=== PATIENT | male | born 1950 | race Caucasian/White ===

== ENCOUNTER 2016-12-23 06:08 | Day surgery (SDC) | payer OTHER ==
[~2016-12-23] VITALS: Ht 182.9 cm; Wt 108.0 kg
[~2016-12-23 06:08] MED LIST: ALBENZA200 MG PO; BENICAR HCT1 TAB PO; BENICAR20 MG PO; CELEBREX200 MG PO; CIPROFLOXACN500 MG PO; FLAGYL500 MG PO; FLEXERIL PO; FLUZONE SPLT1 M1 IM; LORTAB5 PO; METOPROLOL TAR100 MG PO; METOPROLOL50 MG PO; NAPROSYN500 MG PO; SYNTHROID100 MCG PO; ZPAK OR
[2016-12-23 09:20] VITALS: BP 130/63
== END 2016-12-23 09:00 | disposition home or self-care (01) | DRG 951 ==
LOC: ENDO 06:08
PROVIDERS: ATTEND Surgery
PROC: 0DJD8ZZ Inspection of Lower Intestinal Tract, Via Natural or Artificial Opening Endoscopic (ICD-10-PCS; principal; 2016-12-23)
DX: Z12.11 Encounter for screening for malignant neoplasm of colon (principal); K64.8 Other hemorrhoids; K57.30 Diverticulosis of large intestine without perforation or abscess without bleeding; E03.9 Hypothyroidism, unspecified; I10 Essential (primary) hypertension

== ENCOUNTER 2018-04-14 13:49 | Inpatient (IN) | payer MEDICARE ==
[~2018-04-14] VITALS: Ht 182.9 cm; Wt 111.3 kg
[2018-04-18] VITALS (9 sets, daily range): BP systolic 107–130; BP diastolic 49–73
[2018-04-19] VITALS (7 sets, daily range): BP systolic 101–140; BP diastolic 53–81
[2018-04-19 05:12] LABS: HEMATOCRIT 40.1 % (39.0-50.0)
[2018-04-20 04:57] VITALS: BP 146/85
[2018-04-20 05:56] LABS: HEMATOCRIT 39.6 % (39.0-50.0); HEMOGLOBIN 13.1 g/dl (14.0-18.0); IMMATURE GRANULOCYTES 0.3 % (0.0-5.0); MEAN CELL VOLUME 82.8 fL CALC (80.0-100.0); MEAN CORPUSCULAR HGB 27.4 pG CALC (26.0-32.0); MEAN CORPUSCULAR HGB CONC 33.1 g/L CALC (32.0-36.0); NEUT# 7.39 thou/uL (1.82-7.42); RED BLOOD COUNT 4.78 mill/uL (4.70-6.10); RED CELL DISTRI WIDTH 13.3 % (11.5-15.5)
[2018-04-20 06:12] LABS: ALKALINE PHOSPHATASE 60 u/l (38-126); AMYLASE 265 u/l (30-110); ANION GAP 14 (6-22 (CALC)); BILIRUBIN, TOTAL 1.1 mg/dL (0.0-1.4); BUN 20 mg/dL (8-23); BUN/CREATININE RATIO 21 (12-20 (CALC)); CARBON DIOXIDE 29 mmol/l (22-30); CHLORIDE 102 mmol/l (95-108); GFR > 60 ML/MIN (>=60 (CALC)); GFR FOR AFR.AMER. > 60 ML/MIN (>=60 (CALC)); LIPASE 43 u/l (23-300); MAGNESIUM 2.4 mg/dL (1.6-2.3); POTASSIUM 3.7 mmol/l (3.5-5.1); SGOT/AST 20 u/l (19-48); SODIUM 141 mmol/l (137-146); TOTAL PROTEIN 6.3 g/dL (6.3-8.2)
[2018-04-20 09:22] VITALS: BP 139/76
[2018-04-20] MEDS ORDERED: TRAMADOL HCL50 MG PO ×2 (15:06→15:08)
[2018-04-20 16:00] VITALS: BP 155/78
[2018-04-20 16:54] LABS: HEMATOCRIT 38.2 % (39.0-50.0); HEMOGLOBIN 12.7 g/dl (14.0-18.0); IMMATURE GRANULOCYTES 0.3 % (0.0-5.0); MEAN CELL VOLUME 82.2 fL CALC (80.0-100.0); MEAN CORPUSCULAR HGB 27.3 pG CALC (26.0-32.0); MEAN CORPUSCULAR HGB CONC 33.2 g/L CALC (32.0-36.0); NEUT# 7.01 thou/uL (1.82-7.42); RED BLOOD COUNT 4.65 mill/uL (4.70-6.10); RED CELL DISTRI WIDTH 13.2 % (11.5-15.5)
[2018-04-20 17:10] LABS: ANION GAP 11 (6-22 (CALC)); BUN 15 mg/dL (8-23); BUN/CREATININE RATIO 18 (12-20 (CALC)); CARBON DIOXIDE 30 mmol/l (22-30); CHLORIDE 102 mmol/l (95-108); CREATININE 0.9 mg/dL (0.7-1.3); GFR > 60 ML/MIN (>=60 (CALC)); GFR FOR AFR.AMER. > 60 ML/MIN (>=60 (CALC)); POTASSIUM 3.5 mmol/l (3.5-5.1); SODIUM 139 mmol/l (137-146)
[2018-04-20 19:05] VITALS: BP 113/71
[2018-04-20 19:08] LABS: URINE BILIRUBIN - DIPSTICK NEGATIVE (NEGATIVE); URINE BLOOD DIPSTICK MODERATE (NEGATIVE); URINE COLOR YELLOW; URINE GLUCOSE - DIPSTICK NEGATIVE (NEGATIVE); URINE KETONE NEGATIVE (NEGATIVE); URINE LEUK ESTERASE NEGATIVE (Negative); URINE NITRITE - DIPSTICK NEGATIVE (Negative); URINE PH 7.5 (4.5-8.0); URINE PROTEIN - DIPSTICK TRACE mg/dL (NEG-TRACE); URINE UROBILINOGEN - DIPSTICK 0.2 E.U./dL (0.2)
[2018-04-20 19:15] LABS: URINE CLARITY CLEAR
[2018-04-20 19:22] LABS: URINE WBC 0-2 WBC/hpf (0-5)
[2018-04-21 03:56] VITALS: BP 157/83
[2018-04-21 05:55] LABS: HEMATOCRIT 40.9 % (39.0-50.0); HEMOGLOBIN 13.5 g/dl (14.0-18.0); IMMATURE GRANULOCYTES 0.4 % (0.0-5.0); MEAN CELL VOLUME 81.8 fL CALC (80.0-100.0); NEUT# 7.48 thou/uL (1.82-7.42); RED CELL DISTRI WIDTH 13.2 % (11.5-15.5)
[2018-04-21 06:21] LABS: ALBUMIN 3.9 g/dL (3.2-5.0); ALKALINE PHOSPHATASE 64 u/l (38-126); AMYLASE 65 u/l (30-110); ANION GAP 14 (6-22 (CALC)); BILIRUBIN, TOTAL 1.3 mg/dL (0.0-1.4); BUN 14 mg/dL (8-23); BUN/CREATININE RATIO 16 (12-20 (CALC)); CARBON DIOXIDE 28 mmol/l (22-30); CHLORIDE 101 mmol/l (95-108); CREATININE 0.9 mg/dL (0.7-1.3); GFR > 60 ML/MIN (>=60 (CALC)); GFR FOR AFR.AMER. > 60 ML/MIN (>=60 (CALC)); LIPASE 47 u/l (23-300); MAGNESIUM 2.3 mg/dL (1.6-2.3); POTASSIUM 3.6 mmol/l (3.5-5.1); SGOT/AST 20 u/l (19-48); SODIUM 139 mmol/l (137-146); TOTAL PROTEIN 6.3 g/dL (6.3-8.2)
[2018-04-21 07:55] VITALS: BP 123/76
== END 2018-04-21 15:09 | DRG 470 ==
LOC: MS2 04-18 06:17
PROVIDERS: ADMIT Orthopaedic Surgery; ATTEND Internal Medicine Nephrology
PROC: 0SRC0J9 Replacement of Right Knee Joint with Synthetic Substitute, Cemented, Open Approach (ICD-10-PCS; principal; 2018-04-18)
DX: M17.0 Bilateral primary osteoarthritis of knee (principal); I10 Essential (primary) hypertension; E03.9 Hypothyroidism, unspecified; K21.9 Gastro-esophageal reflux disease without esophagitis; I95.9 Hypotension, unspecified; Z87.891 Personal history of nicotine dependence
CPT/HCPCS: J1100; J2270

== ENCOUNTER → 2018-05-09 | Outpatient (REF) | payer MEDICARE ==
[~2018-05-09] MED LIST changes: +TRAMADOL HCL50 MG PO
[2018-05-09 10:01] LABS: HEMATOCRIT 42.8 % (39.0-50.0); HEMOGLOBIN 14.1 g/dl (14.0-18.0); IMMATURE GRANULOCYTES 0.2 % (0.0-5.0); MEAN CELL VOLUME 82.6 fL CALC (80.0-100.0); MEAN CORPUSCULAR HGB 27.2 pG CALC (26.0-32.0); MEAN CORPUSCULAR HGB CONC 32.9 g/L CALC (32.0-36.0); NEUT# 3.95 thou/uL (1.82-7.42); RED BLOOD COUNT 5.18 mill/uL (4.70-6.10); RED CELL DISTRI WIDTH 13.2 % (11.5-15.5)
[2018-05-09 10:16] LABS: ALBUMIN 4.5 g/dL (3.2-5.0); ALKALINE PHOSPHATASE 75 u/l (38-126); ANION GAP 14 (6-22 (CALC)); BUN 20 mg/dL (8-23); BUN/CREATININE RATIO 22 (12-20 (CALC)); CALCULATED LDLCHOLESTEROL 128 mg/dL (62-129 (CALC)); CARBON DIOXIDE 29 mmol/l (22-30); CHLORIDE 103 mmol/l (95-108); CHOLESTEROL HDL RATIO 5.6 (<4.4 (CALC)); CREATININE 0.9 mg/dL (0.7-1.3); GFR > 60 ML/MIN (>=60 (CALC)); GFR FOR AFR.AMER. > 60 ML/MIN (>=60 (CALC)); HDL CHOLESTEROL 35 mg/dL (>=40); SGOT/AST 18 u/l (19-48); SODIUM 142 mmol/l (137-146); TOTAL CHOLESTEROL 193 mg/dl (0-199); TOTAL PROTEIN 7.2 g/dL (6.3-8.2); TOTAL TRIGLYCERIDES 151 mg/dl (30-149); VLDL CHOLESTROL 30 mg/dl (4-45 (CALC))
[2018-05-09 10:21] LABS: POTASSIUM 4.4 mmol/l (3.5-5.1)
[2018-05-09 10:42] LABS: TSH, 3RD GENERATION 1.93 uIU/mL (0.47 - 4.68)
== END | disposition home or self-care (01) ==
LOC: LAB 08:59
PROVIDERS: ATTEND Internal Medicine
DX: E03.4 Atrophy of thyroid (acquired) (principal); N40.0 Benign prostatic hyperplasia without lower urinary tract symptoms; Z12.5 Encounter for screening for malignant neoplasm of prostate

== ENCOUNTER → 2018-05-23 | Outpatient (REF) | payer MEDICARE | END | disposition home or self-care (01) | LOC: DI 10:00 | PROVIDERS: ATTEND Orthopaedic Surgery | DX: M25.561 Pain in right knee (principal); Z47.1 Aftercare following joint replacement surgery; Z96.651 Presence of right artificial knee joint ==

== ENCOUNTER 2018-06-29 11:33 | Emergency (ER) | payer MEDICARE ==
[~2018-06-29] VITALS: Ht 182.9 cm; Wt 108.0 kg
[2018-06-29 12:06] LABS: GFR > 60 ML/MIN (>=60 (CALC)); GFR FOR AFR.AMER. > 60 ML/MIN (>=60 (CALC))
[2018-06-29 12:09] LABS: HEMATOCRIT 43.3 % (39.0-50.0); IMMATURE GRANULOCYTES 0.5 % (0.0-5.0); MEAN CELL VOLUME 80.9 fL CALC (80.0-100.0); MEAN CORPUSCULAR HGB 26.2 pG CALC (26.0-32.0); MEAN CORPUSCULAR HGB CONC 32.3 g/L CALC (32.0-36.0); NEUT# 5.15 thou/uL (1.82-7.42); RED BLOOD COUNT 5.35 mill/uL (4.70-6.10); RED CELL DISTRI WIDTH 13.3 % (11.5-15.5)
[2018-06-29 12:28] LABS: ALBUMIN 4.4 g/dL (3.2-5.0); ALKALINE PHOSPHATASE 76 u/l (38-126); AMYLASE 53 u/l (30-110); ANION GAP 13 (6-22 (CALC)); BUN 17 mg/dL (8-23); BUN/CREATININE RATIO 19 (12-20 (CALC)); CARBON DIOXIDE 26 mmol/l (22-30); CHLORIDE 105 mmol/l (95-108); CREATININE 0.9 mg/dL (0.7-1.3); GFR > 60 ML/MIN (>=60 (CALC)); GFR FOR AFR.AMER. > 60 ML/MIN (>=60 (CALC)); LIPASE 47 u/l (23-300); POTASSIUM 3.8 mmol/l (3.5-5.1); SGOT/AST 19 u/l (19-48); SODIUM 141 mmol/l (137-146); TOTAL PROTEIN 7.2 g/dL (6.3-8.2)
[2018-06-29 12:39] LABS: MYOGLOBIN 56 ng/mL (0 - 121)
[2018-06-29] MEDS ORDERED: OMNICEF300 M1 PO (13:23)
[2018-06-29 14:22] VITALS: BP 137/76
[2018-06-29 14:27] LABS: URINE BILIRUBIN - DIPSTICK NEGATIVE (NEGATIVE); URINE BLOOD DIPSTICK TRACE-INTACT (NEGATIVE); URINE COLOR YELLOW; URINE GLUCOSE - DIPSTICK NEGATIVE (NEGATIVE); URINE KETONE NEGATIVE (NEGATIVE); URINE LEUK ESTERASE NEGATIVE (NEGATIVE); URINE NITRITE - DIPSTICK NEGATIVE (Negative); URINE PROTEIN - DIPSTICK TRACE mg/dL (NEG-TRACE); URINE UROBILINOGEN - DIPSTICK 0.2 E.U./dL (0.2)
== END 2018-06-29 14:22 | disposition home or self-care (01) ==
LOC: ED 11:33
PROVIDERS: Family Medicine
DX: N12 Tubulo-interstitial nephritis, not specified as acute or chronic (principal); B96.1 Klebsiella pneumoniae [K. pneumoniae] as the cause of diseases classified elsewhere; R50.9 Fever, unspecified; N40.1 Benign prostatic hyperplasia with lower urinary tract symptoms; R35.0 Frequency of micturition; R30.0 Dysuria; R31.9 Hematuria, unspecified; R19.7 Diarrhea, unspecified; I10 Essential (primary) hypertension; R10.31 Right lower quadrant pain; R10.32 Left lower quadrant pain; R10.12 Left upper quadrant pain
CPT/HCPCS: Q9967

== ENCOUNTER 2019-01-11 14:02 | Inpatient (IN) | payer MEDICARE ==
[~2019-01-11] VITALS: Ht 182.9 cm; Wt 108.9 kg
[~2019-01-11 14:02] MED LIST changes: +OMNICEF300 M1 PO
[2019-01-11] MEDS ORDERED: BENICAR40 MG PO (14:35)
[2019-01-16] VITALS (9 sets, daily range): BP systolic 102–115; BP diastolic 44–69
[2019-01-17 03:15] VITALS: BP 120/67
[2019-01-17 05:10] LABS: HEMOGLOBIN 13.9 g/dl (14.0-18.0); IMMATURE GRANULOCYTES 0.4 % (0.0-5.0); MEAN CELL VOLUME 83.2 fL CALC (80.0-100.0); MEAN CORPUSCULAR HGB 26.9 pG CALC (26.0-32.0); MEAN CORPUSCULAR HGB CONC 32.3 g/L CALC (32.0-36.0); NEUT# 11.88 thou/uL (1.82-7.42); RED BLOOD COUNT 5.17 mill/uL (4.70-6.10); RED CELL DISTRI WIDTH 13.6 % (11.5-15.5)
[2019-01-17 05:30] LABS: BUN 24 mg/dL (8-23); BUN/CREATININE RATIO 28 (12-20 (CALC)); CARBON DIOXIDE 25 mmol/l (22-30); CHLORIDE 101 mmol/l (95-108); CREATININE 0.9 mg/dL (0.7-1.3); GFR > 60 ML/MIN (>=60 (CALC)); GFR FOR AFR.AMER. > 60 ML/MIN (>=60 (CALC)); MAGNESIUM 2.2 mg/dL (1.6-2.3); SODIUM 139 mmol/l (137-146)
[2019-01-17 05:51] LABS: ANION GAP 18 (6-22 (CALC)); POTASSIUM 4.5 mmol/l (3.5-5.1)
[2019-01-17 08:00] VITALS: BP 94/65
[2019-01-17 11:36] VITALS: BP 129/70
[2019-01-17 16:00] VITALS: BP 123/72
[2019-01-17 18:45] VITALS: BP 99/57
[2019-01-17 20:05] LABS: URINE BILIRUBIN - DIPSTICK NEGATIVE (NEGATIVE); URINE BLOOD DIPSTICK TRACE-INTACT (NEGATIVE); URINE COLOR YELLOW; URINE GLUCOSE - DIPSTICK NEGATIVE (NEGATIVE); URINE KETONE NEGATIVE (NEGATIVE); URINE LEUK ESTERASE NEGATIVE (NEGATIVE); URINE NITRITE - DIPSTICK NEGATIVE (Negative); URINE PH 5.5 (4.5-8.0); URINE PROTEIN - DIPSTICK NEGATIVE (NEG-TRACE); URINE UROBILINOGEN - DIPSTICK 0.2 E.U./dL (0.2)
[2019-01-17 23:45] VITALS: BP 115/88
[2019-01-18 03:29] VITALS: BP 140/81
[2019-01-18 06:20] LABS: IMMATURE GRANULOCYTES 0.4 % (0.0-5.0); MEAN CELL VOLUME 83.4 fL CALC (80.0-100.0); MEAN CORPUSCULAR HGB 27.2 pG CALC (26.0-32.0); MEAN CORPUSCULAR HGB CONC 32.6 g/L CALC (32.0-36.0); NEUT# 8.31 thou/uL (1.82-7.42); RED BLOOD COUNT 4.41 mill/uL (4.70-6.10); RED CELL DISTRI WIDTH 13.8 % (11.5-15.5)
[2019-01-18 06:23] LABS: HEMATOCRIT 36.8 % (39.0-50.0)
[2019-01-18 06:35] LABS: ANION GAP 12 (6-22 (CALC)); BUN 24 mg/dL (8-23); BUN/CREATININE RATIO 24 (12-20 (CALC)); CARBON DIOXIDE 28 mmol/l (22-30); CHLORIDE 100 mmol/l (95-108); GFR > 60 ML/MIN (>=60 (CALC)); GFR FOR AFR.AMER. > 60 ML/MIN (>=60 (CALC)); MAGNESIUM 2.4 mg/dL (1.6-2.3); POTASSIUM 3.9 mmol/l (3.5-5.1); SODIUM 136 mmol/l (137-146)
[2019-01-18 07:52] VITALS: BP 121/70
[2019-01-18 16:00] VITALS: BP 87/41
[2019-01-18 18:50] VITALS: BP 122/65
[2019-01-18 23:45] VITALS: BP 125/71
[2019-01-19 03:35] VITALS: BP 114/63
[2019-01-19 05:04] LABS: HEMATOCRIT 34.9 % (39.0-50.0); HEMOGLOBIN 11.2 g/dl (14.0-18.0); IMMATURE GRANULOCYTES 0.4 % (0.0-5.0); MEAN CELL VOLUME 84.1 fL CALC (80.0-100.0); MEAN CORPUSCULAR HGB CONC 32.1 g/L CALC (32.0-36.0); NEUT# 5.93 thou/uL (1.82-7.42); RED BLOOD COUNT 4.15 mill/uL (4.70-6.10); RED CELL DISTRI WIDTH 13.7 % (11.5-15.5)
[2019-01-19 05:21] LABS: ANION GAP 9 (6-22 (CALC)); BUN 18 mg/dL (8-23); BUN/CREATININE RATIO 18 (12-20 (CALC)); CARBON DIOXIDE 31 mmol/l (22-30); CHLORIDE 102 mmol/l (95-108); GFR > 60 ML/MIN (>=60 (CALC)); GFR FOR AFR.AMER. > 60 ML/MIN (>=60 (CALC)); SODIUM 139 mmol/l (137-146)
[2019-01-19 07:50] VITALS: BP 133/69
[2019-01-19] MEDS ORDERED: DOXYCYCL HYC100 MG PO (10:00)
[2019-01-19 11:17] VITALS: BP 137/77
== END 2019-01-19 14:45 | disposition home health service (06) | DRG 470 ==
LOC: MS2 01-16 08:47
PROVIDERS: Internal Medicine; Nurse Practitioner Family; ADMIT Orthopaedic Surgery; ATTEND Orthopaedic Surgery
PROC: 0SRD0J9 Replacement of Left Knee Joint with Synthetic Substitute, Cemented, Open Approach (ICD-10-PCS; principal; 2019-01-16)
DX: M17.12 Unilateral primary osteoarthritis, left knee (principal); I10 Essential (primary) hypertension; E89.0 Postprocedural hypothyroidism; R50.82 Postprocedural fever; T88.7XXA Unspecified adverse effect of drug or medicament, initial encounter; T36.8X5A Adverse effect of other systemic antibiotics, initial encounter; Z96.651 Presence of right artificial knee joint; Z87.891 Personal history of nicotine dependence
CPT/HCPCS: J0692; J1100; J2270; S0073

== ENCOUNTER 2019-09-14 20:57 | Observation (INO) | payer MEDICARE ==
[~2019-09-14] VITALS: Ht 182.9 cm; Wt 111.8 kg
[~2019-09-14 20:57] MED LIST changes: +BENICAR40 MG PO; +DOXYCYCL HYC100 MG PO
--- NOTE | 2019-09-14 21:01 | NUR ---
PATIENT TO ROOM 12 VIA WHEELCHAIR. UNDRESSED INTO A GOWN. PLACED ON MONITOR. TRIAGE COMPLETED AT BEDSIDE.
--- NOTE | 2019-09-14 21:01 | NUR ---
TRIAGED IN ROOM. SOB.
[2019-09-14 21:38] LABS: HEMATOCRIT 40.3 % (39.0-50.0); IMMATURE GRANULOCYTES 0.3 % (0.0-5.0); MEAN CELL VOLUME 81.6 fL CALC (80.0-100.0); MEAN CORPUSCULAR HGB 26.9 pG CALC (26.0-32.0); NEUT# 3.79 thou/uL (1.82-7.42); RED BLOOD COUNT 4.94 mill/uL (4.70-6.10); RED CELL DISTRI WIDTH 14.1 % (11.5-15.5)
[2019-09-14 21:42] LABS: HEMOGLOBIN 13.3 g/dl (14.0-18.0)
[2019-09-14 21:50] LABS: ALBUMIN 4.5 g/dL (3.2-5.0); ALKALINE PHOSPHATASE 72 u/l (38-126); ANION GAP 8 (6-22 (CALC)); BILIRUBIN, TOTAL 0.9 mg/dL (0.0-1.4); BUN 20 mg/dL (8-23); BUN/CREATININE RATIO 22 (12-20 (CALC)); CARBON DIOXIDE 30 mmol/l (22-30); CHLORIDE 105 mmol/l (95-108); CREATININE 0.9 mg/dL (0.7-1.3); GFR > 60 ML/MIN (>=60 (CALC)); GFR FOR AFR.AMER. > 60 ML/MIN (>=60 (CALC)); POTASSIUM 3.7 mmol/l (3.5-5.1); SGOT/AST 26 u/l (19-48); SODIUM 140 mmol/l (137-146)
--- NOTE | 2019-09-14 22:00 | NUR ---
OOB TO VOID.
[2019-09-14 22:02] LABS: MYOGLOBIN 53 ng/mL (0 - 121)
--- NOTE | 2019-09-14 22:10 | NUR ---
UOP 450 CC CLEAR YELLOW
[2019-09-14 22:21] LABS: URINE BILIRUBIN - DIPSTICK NEGATIVE (NEGATIVE); URINE BLOOD DIPSTICK SMALL (NEGATIVE); URINE COLOR YELLOW; URINE GLUCOSE - DIPSTICK NEGATIVE (NEGATIVE); URINE KETONE NEGATIVE (NEGATIVE); URINE LEUK ESTERASE NEGATIVE (NEGATIVE); URINE NITRITE - DIPSTICK NEGATIVE (Negative); URINE PROTEIN - DIPSTICK NEGATIVE (NEG-TRACE); URINE UROBILINOGEN - DIPSTICK 0.2 E.U./dL (0.2)
[2019-09-14 22:29] LABS: URINE WBC 0-2 WBC/hpf (0-5)
--- NOTE | 2019-09-14 22:40 | NUR ---
UOP 750 CC
--- NOTE | 2019-09-14 23:18 | NUR ---
ED CALLS WITH INFORMATION ON PATIENT FOR PLACEMENT TO MED SURG UNIT.
--- NOTE | 2019-09-14 23:53 | NUR ---
CALLED ED AND ASSIGNED ROOM 261 FOR PT.
--- NOTE | 2019-09-14 23:57 | NUR ---
TELEPHONE REPORT RECEIVED FROM Aviva LOPEZ RN, ROOM MADE READY TO RECEIVE PATIENT BY Rubens PRATT CNA.
--- NOTE | 2019-09-15 | NUR ---
UOP 800 CC
--- NOTE | 2019-09-15 00:05 | NUR ---
Admission Note Report Given to: ARIANNA FUENTES Transported by: X Wheelchair Stretcher Transported with: X Nurse Transporter X Patent IV O2 X Adjunct Art History Instructor Location: ICU X MS2
[2019-09-15 00:06] VITALS: BP 137/71
--- NOTE | 2019-09-15 00:06 | NUR ---
PT ARRIVES TO UNIT VIA WC ACCOMPANIED BY Aviva LOPEZ RN, PT TO ROOM 261 ASASSIGNED. AMBULATORY TO BATHROOM AND BACK TO BED. GAIT STEADY AND BALANCED. ORIENTED PT TO ROOM, BED/TV/LIGHTS/ CALL ASKEW SYSTEM. PT VERBALIZES UNDERSTANDING.
[2019-09-15 03:00] VITALS: BP 123/68
--- NOTE | 2019-09-15 05:52 | NUR ---
PT APPEARS TO BE SLEEPING COMFORTABLY IN BED. NO APPARENT DISTRESS. RESPIRATIONS REGULAR AND UNLABORED.PHYSICAL ASSESMENT UNCHANGED FROM BEGINING OF SHIFT BASELINE. PT AFEBRILE, HEMODYNAMICS STABLE. DENIES NEEDS AT THIS TIME. ITEMS REMAIN WITHIN REACH. BED REMAINS LOCKED IN LOW POSITION W/ BEDRAILS UPX2. CALL ASKEW REMAINS WITHIN REACH, AGREES TO CALL PRN.
[2019-09-15 08:25] VITALS: BP 130/73
--- NOTE | 2019-09-15 08:40 | NUR ---
ASSESSMENT DONE. PT IS A&O X3. TELE IN PLACE. PT DENIES ANY PAIN AT THIS TIME. RESPS EVEN AND UNLABORED. PT DENIES ANY NEEDS AT THIS TIME. CALL LIGHT IN REACH.
[2019-09-15] MEDS ORDERED: BENICAR HCT1 TA1 PO (10:45)
[2019-09-15] MEDS ORDERED: MELOXICAM7.5 MG PO (10:45)
[2019-09-15] MEDS ORDERED: ADLT ASA LOW81 MG PO (10:45)
--- NOTE | 2019-09-15 12:40 | NUR ---
Discharge instructions given. Patient verbalizes understanding of same. Discharged in stable condition via Wheelchair to Home with parents. All belongings sent with pt.
[2019-09-15 12:51] VITALS: BP 139/75
== END 2019-09-15 12:34 | disposition home or self-care (01) ==
LOC: ED 20:57 → ED-I 21:28 → ED 23:19 → MS2 23:20 → ED-I 23:20 → MS2 23:50
PROVIDERS: Emergency Medicine; Internal Medicine; ADMIT Internal Medicine; ATTEND Internal Medicine
DX: I11.0 Hypertensive heart disease with heart failure (principal); I50.9 Heart failure, unspecified; E89.0 Postprocedural hypothyroidism; T46.5X6A Underdosing of other antihypertensive drugs, initial encounter; Z91.128 Patient's intentional underdosing of medication regimen for other reason; Z87.891 Personal history of nicotine dependence; Z20.828 Contact with and (suspected) exposure to other viral communicable diseases
CPT/HCPCS: G0378

== ENCOUNTER 2021-03-15 16:07 | Emergency (ER) | payer MEDICARE ==
[~2021-03-15] VITALS: Ht 182.9 cm; Wt 109.0 kg
[~2021-03-15 16:07] MED LIST changes: +ADLT ASA LOW81 MG PO; +BENICAR HCT1 TA1 PO; +MELOXICAM7.5 MG PO
[2021-03-15 17:19] LABS: HEMATOCRIT 40.4 % (39.0-50.0); HEMOGLOBIN 13.3 g/dl (14.0-18.0); IMMATURE GRANULOCYTES 0.2 % (0.0-5.0); MEAN CORPUSCULAR HGB 27.3 pG CALC (26.0-32.0); MEAN CORPUSCULAR HGB CONC 32.9 g/dL CAL (32.0-36.0); NEUT# 5.45 thou/uL (1.82-7.42); RED BLOOD COUNT 4.87 mill/uL (4.70-6.10); RED CELL DISTRI WIDTH 12.9 % (11.5-15.5)
[2021-03-15 17:41] LABS: ALBUMIN 3.7 g/dL (3.2-5.0); BILIRUBIN, TOTAL 0.7 mg/dL (0.0-1.4); CREATININE 1.5 mg/dL (0.7-1.3); POTASSIUM 3.9 mmol/l (3.5-5.1); TOTAL PROTEIN 6.9 g/dL (6.3-8.2)
[2021-03-15 19:35] VITALS: BP 121/77
== END 2021-03-15 17:20 | disposition short-term general hospital (02) ==
LOC: ED 16:07
PROVIDERS: Family Medicine
PROC: 05HM33Z Insertion of Infusion Device into Right Internal Jugular Vein, Percutaneous Approach (ICD-10-PCS; principal; 2021-03-15)
DX: I21.3 ST elevation (STEMI) myocardial infarction of unspecified site (principal); I10 Essential (primary) hypertension; E66.3 Overweight; Z96.612 Presence of left artificial shoulder joint; Z20.822 Contact with and (suspected) exposure to COVID-19

== ENCOUNTER 2021-09-11 23:12 | Emergency (ER) | payer MEDICARE ==
[~2021-09-11] VITALS: Ht 182.9 cm; Wt 109.0 kg
[2021-09-11 23:51] LABS: HEMATOCRIT 39.6 % (39.0-50.0); HEMOGLOBIN 12.7 g/dl (14.0-18.0); IMMATURE GRANULOCYTES 0.1 % (0.0-5.0); MEAN CELL VOLUME 82.8 fL CALC (80.0-100.0); MEAN CORPUSCULAR HGB 26.6 pG CALC (26.0-32.0); MEAN CORPUSCULAR HGB CONC 32.1 g/dL CAL (32.0-36.0); NEUT# 4.28 thou/uL (1.82-7.42); RED BLOOD COUNT 4.78 mill/uL (4.70-6.10); RED CELL DISTRI WIDTH 13.1 % (11.5-15.5)
[2021-09-12 00:11] LABS: ALBUMIN 4.1 g/dL (3.2-5.0); ALKALINE PHOSPHATASE 75 u/l (38-126); AMYLASE 91 u/l (30-110); BUN 28 mg/dL (8-23); BUN/CREATININE RATIO 25 (12-20 (CALC)); CHLORIDE 106 mmol/l (95-108); CREATININE 1.2 mg/dL (0.7-1.3); GFR FOR AFR.AMER. > 60 ML/MIN (>=60 (CALC)); GFR OTHER RACES 60 ML/MIN (>=60 (CALC)); LIPASE 127 u/l (23-300); POTASSIUM 3.8 mmol/l (3.5-5.1); SGOT/AST 22 u/l (19-48); SODIUM 140 mmol/l (137-146); TOTAL PROTEIN 7.5 g/dL (6.3-8.2)
[2021-09-12 00:12] LABS: ACT PARTIAL THROMBO TIME 26.7 SECONDS (20.0-32.5); PROTHROMBIN TIME 10.4 SECONDS (9.0-12.5)
[2021-09-12 00:19] LABS: ANION GAP 11 (6-22 (CALC)); BILIRUBIN, TOTAL 0.4 mg/dL (0.0-1.4); CARBON DIOXIDE 27 mmol/l (22-30)
[2021-09-12 00:23] LABS: MYOGLOBIN 66 ng/mL (0 - 121)
[2021-09-12 00:27] LABS: D-DIMER 3.93 mg/L (0.19-0.60)
[2021-09-12] MEDS ORDERED: BRILINTA90 MG PO (01:19)
[2021-09-12] MEDS ORDERED: OMEPRAZOLE20 MG PO (01:21)
[2021-09-12] MEDS ORDERED: PRAVASTATIN SOD10 MG PO (01:21)
[2021-09-12] MEDS ORDERED: MOBIC7.5 M1 PO (01:22)
[2021-09-12] MEDS ORDERED: BENICAR HCT1 TA1 PO (01:23)
[2021-09-12 02:00] VITALS: BP 108/58
== END 2021-09-12 02:00 | disposition home or self-care (01) ==
LOC: ED 23:12
PROVIDERS: Family Medicine
DX: R07.9 Chest pain, unspecified (principal); I10 Essential (primary) hypertension; I25.10 Atherosclerotic heart disease of native coronary artery without angina pectoris; E66.3 Overweight; Z95.5 Presence of coronary angioplasty implant and graft; Z20.822 Contact with and (suspected) exposure to COVID-19
CPT/HCPCS: Q9967

== ENCOUNTER 2021-12-23 18:13 | Emergency (ER) | payer MEDICARE ==
[~2021-12-23] VITALS: Ht 182.9 cm; Wt 108.8 kg
[~2021-12-23 18:13] MED LIST changes: +BRILINTA90 MG PO; +MOBIC7.5 M1 PO; +OMEPRAZOLE20 MG PO; +PRAVASTATIN SOD10 MG PO
[2021-12-23 18:20] VITALS: BP 117/71
[2021-12-23 18:30] VITALS: BP 103/63
[2021-12-23 19:00] VITALS: BP 108/62
[2021-12-23 19:20] LABS: HEMATOCRIT 39.4 % (39.0-50.0); HEMOGLOBIN 12.8 g/dl (14.0-18.0); IMMATURE GRANULOCYTES 0.2 % (0.0-5.0); MEAN CORPUSCULAR HGB 25.7 pG CALC (26.0-32.0); MEAN CORPUSCULAR HGB CONC 32.5 g/dL CAL (32.0-36.0); NEUT# 7.01 thou/uL (1.82-7.42); RED BLOOD COUNT 4.99 mill/uL (4.70-6.10); RED CELL DISTRI WIDTH 13.2 % (11.5-15.5)
[2021-12-23 19:33] LABS: ALBUMIN 4.1 g/dL (3.2-5.0); ALKALINE PHOSPHATASE 73 u/l (38-126); ANION GAP 15 (6-22 (CALC)); BUN 21 mg/dL (8-23); BUN/CREATININE RATIO 18 (12-20 (CALC)); CARBON DIOXIDE 28 mmol/l (22-30); CHLORIDE 99 mmol/l (95-108); CREATININE 1.2 mg/dL (0.7-1.3); GFR FOR AFR.AMER. > 60 ML/MIN (>=60 (CALC)); GFR OTHER RACES 60 ML/MIN (>=60 (CALC)); POTASSIUM 3.8 mmol/l (3.5-5.1); SGOT/AST 34 u/l (19-48); SODIUM 138 mmol/l (137-146); TOTAL PROTEIN 7.8 g/dL (6.3-8.2)
[2021-12-23 19:39] LABS: BILIRUBIN, TOTAL 0.4 mg/dL (0.0-1.4)
[2021-12-23 21:24] VITALS: BP 108/62
[2021-12-24] MEDS ORDERED: BACTRIM DS1 TAB PO (10:30)
== END 2021-12-23 21:34 | disposition home or self-care (01) ==
LOC: ED 18:13
PROVIDERS: Family Medicine
DX: J06.9 Acute upper respiratory infection, unspecified (principal); I10 Essential (primary) hypertension; I25.10 Atherosclerotic heart disease of native coronary artery without angina pectoris; Z86.16 Personal history of COVID-19; Z20.822 Contact with and (suspected) exposure to COVID-19
CPT/HCPCS: Q9967